=== PATIENT | female | born 1980 | race Two or more races ===

== ENCOUNTER → 2019-08-08 | Outpatient (CLI) | payer OTHER ==
[2019-08-08 11:44] LABS: HEMOGLOBIN 13.3 g/dL (12.0-15.5); MEAN CORPUSCULAR HEMOGLOBIN 29.5 pg (27.0-33.4); MEAN CORPUSCULAR HGB CONC 34.2 g/dL (32.0-36.0); MEAN CORPUSCULAR VOLUME 86 fl (80-97); PLATELET COUNT 239 10^3/uL (150-450); RED BLOOD COUNT 4.52 10^6/uL (3.72-5.28); RED CELL DISTRIBUTION WIDTH 13.1 % (11.5-14.0); WHITE BLOOD COUNT 6.8 10^3/uL (4.0-10.5)
[2019-08-08 12:21] LABS: ALBUMIN 4.3 g/dL (3.5-5.0); ALKALINE PHOSPHATASE 102 U/L (38-126); ANION GAP 8 (5-19); ASPARTATE AMINO TRANSFERASE 44 U/L (14-36); BILIRUBIN,DIRECT 0.2 mg/dL (0.0-0.4); BILIRUBIN,TOTAL 0.7 mg/dL (0.2-1.3); BLOOD UREA NITROGEN 15 mg/dL (7-20); CALCIUM 9.6 mg/dL (8.4-10.2); CARBON DIOXIDE 29 mmol/L (22-30); CHLORIDE 102 mmol/L (98-107); CHOLESTEROL 221.52 mg/dL (0-200); GLUCOSE 77 mg/dL (75-110); POTASSIUM 4.5 mmol/L (3.6-5.0); TOTAL PROTEIN 7.7 g/dL (6.3-8.2); TRIGLYCERIDES 90 mg/dL (<150)
[2019-08-08 12:32] LABS: DIRECT LDL 127 mg/dL (<100)
== END ==
LOC: OD 10:19
PROVIDERS: ATTEND Nurse Practitioner Family
DX: E66.9 Obesity, unspecified (principal); R94.5 Abnormal results of liver function studies
CPT/HCPCS: 36415; 80053; 80061; 83036; 84443; 85027